=== PATIENT | male | born 1940 | race Caucasian/White ===

== ENCOUNTER 2019-04-21 15:14 | Outpatient (CLI) | payer MEDICARE, SELFPAY ==
--- NOTE | 2019-04-21 15:23 | XR_ITS ---
WS: [id number] KNEE LEFT TECHNIQUE: 4 views of the left knee CLINICAL INFORMATION: CHRONIC LEFT KNEE PAIN COMPARISON: None. FINDINGS: Normal anatomic alignment. Mild degenerative arthritis with medial joint space narrowing. Hypertrophi c patella. Mild soft tissue edema. No acute fractures. XR/XR knee LT 4V [id number] IMPRESSION: Mild degenerative arthritis. No acute fractures.
== END 2019-04-21 15:15 | disposition home or self-care (01) ==
LOC: RADWPI 15:20
PROVIDERS: Family Provider Family Medicine; PCP Nurse Practitioner Family; Visit Provider Nurse Practitioner Family
DX: M17.12 Unilateral primary osteoarthritis, left knee (principal); M25.562 Pain in left knee
CPT/HCPCS: 73564

== ENCOUNTER 2021-03-12 13:45 | Outpatient (CLI) | payer MEDICARE, SELFPAY ==
--- NOTE | 2021-03-12 13:57 | XR_ITS ---
WS: [id number] HIP WITH PELVIS RIGHT TECHNIQUE: 3 views of the right hip with pelvis CLINICAL INFORMATION: RIGHT BACK PAIN COMPARISON: None. FINDINGS: Mild degenerative arthritis with joint space narrowing bilateral hips. No acute fractures. Normal pub ic rami. Degenerative arthritis lower lumbar spine. Pelvic phleboliths. Normal right proximal femoral shaft. XR/XR hip RT 2-3V wo/w pel* [id number] IMPRESSION: Mild degenerative arthritis both hips. No acute fractures. Tonnis classification: grade 1: sclerosis of femoral head and acetabulum or sli ght joint space narrowing or slight lippig at joint margins
--- NOTE | 2021-03-12 13:57 | XR_ITS ---
WS: [id number] LUMBAR SPINE TECHNIQUE: 7 views of the lumbar spine CLINICAL INFORMATION: RIGHT BACK PAIN COMPARISON: None. FINDINGS: Five [id number] lumbar vertebral bodies. Disc space narrowing worse at L3-L4 L4-L5 and L5-S1. Sl ight retrolisthesis L4 on L5 measuring 2.7 mm. Slight anterolisthesis L5 on S1 measuring 3.1 mm with bilateral spondylolysis. Slight increase in flexion measuring 5.8 mm and decreases in extension measu ring 3.3 mm. Pelvic phleboliths. Aortic calcification. IMPRESSION: 1. Mild disc space narrowing L3-L4 L4-L5 and L5-S1. 2. Grade 1 anterolisthesis L5 on S1 measuring 3 mm in neutral with mild flexion-extension stability described above. Bilateral spondylolysis L5-S1. 3. Slight retrolisthesis L4 on L5 measuring 2.7 mm.
== END 2021-03-12 13:46 | disposition home or self-care (01) ==
LOC: RAD 13:51
PROVIDERS: PCP Nurse Practitioner Family; Visit Provider Family Medicine
DX: M47.817 Spondylosis without myelopathy or radiculopathy, lumbosacral region (principal); M16.0 Bilateral primary osteoarthritis of hip
CPT/HCPCS: 72114; 73502

== ENCOUNTER 2022-03-29 12:05 | Outpatient (CLI) | payer MEDICARE, SELFPAY ==
--- NOTE | 2022-03-29 12:20 | XR_ITS ---
WS: [id number] XR foot LT 2V [id number] REASON FOR EXAM: L HEEL PAIN FINDINGS: The joint spaces of the forefoot, midfoot, and hindfoot are relatively well-preserved for age. No fracture, periosteal reaction, or other focal bony abnormality. There is a small calcaneal plantar enthesophyte. XR/XR foot LT 2V [id number] IMPRESSION: Small calcaneal enthesophyte.
== END 2022-03-29 12:06 | disposition home or self-care (01) ==
PROVIDERS: PCP Nurse Practitioner Family; Visit Provider Nurse Practitioner Family
DX: M79.672 Pain in left foot (principal); M77.32 Calcaneal spur, left foot
CPT/HCPCS: 73620